=== PATIENT | male | born 1930 | race Caucasian/White ===

== ENCOUNTER 2018-02-27 10:27 | Emergency (ER) | payer MEDICARE, BC ==
[2018-02-27 11:07] LABS: #Basophils 0.1 thou/uL (0.0-0.2); #Eosinphils 0.1 thou/uL (0.0-0.7); #Lymphocytes 0.7 thou/uL (1.20-3.40); #Monocytes 0.6 thou/uL (0.11-0.59); #Neutrophils 4.8 thou/uL (1.40-6.50); %Basophils 1.3 % (0.0-1.0); %Eosinophils 1.5 % (0.0-10.0); %Lymphocytes 11.5 % (21.0-51.0); %Neutrophils 76.7 % (42.0-75.0); Hemoglobin 14.1 g/dL (14.0-18.0); Mean Corpuscular HGB CONC 36.1 g/dL (32.0-36.0); Mean Corpuscular Hemoglobin 33.2 pg (27.0-31.0); Mean Corpuscular Volume 92.1 fL (78.0-98.0); Mean Platelet Volume 9.2 fL (7.4-10.4); Platelet Count 176 thou/uL (130-400); RBC Distribution Width 11.3 % (11.5-14.5); Red Blood Cell (RBC) Count 4.26 mill/uL (4.70-6.10); White Blood Cell (WBC) Count 6.3 thou/uL (4.8-10.8)
[2018-02-27 11:17] LABS: ALT (SGPT) 24 U/L (8-55); AST (SGOT) 32 U/L (5-34); Albumin 3.8 g/dL (3.4-4.8); Alkaline Phosphatase 91 U/L (40-150); Anion Gap 13 mmol/L (10-20); BUN (Urea Nitrogen) 13 mg/dL (8.4-25.7); Bilirubin, Total 1.7 mg/dL (0.2-1.2); CK (CPK) 24 U/L (30-200); Calc. Creatinine Clearance 0 mL/min (70-130); Calcium 9.2 mg/dL (7.8-10.44); Carbon Dioxide 23 mmol/L (23-31); Chloride 102 mmol/L (98-107); Estimated GFR-MDRD 85; Glucose 116 mg/dL (83-110); Lipase 6 U/L (8-78); Potassium 3.9 mmol/L (3.5-5.1); Protein, Total 6.8 g/dL (5.8-8.1); Sodium 134 mmol/L (136-145)
[2018-02-27 11:20] LABS: CKMB 0.9 ng/mL (0-6.6); Troponin I Less than 0.010 ng/mL (< 0.028)
[2018-02-27] MEDS ORDERED: Meclizine HCl 25 MG TAB ONE (11:26)
--- NOTE | 2018-02-27 11:38 | RAD ---
CHEST 1 VIEW: Date: 02/27/18 HISTORY: Weakness. Dyspnea. COMPARISON: 02/11/17. FINDINGS: Cardiac silhouette magnified by projection. Pulmonary vasculature remains upper limits of normal. Med iastinum midline with aortic calcification. Prominent pleural calcifications throughout each hemithor ax are similar in appearance to the prior study. No lobar consolidation or evidence of pneumothorax. IMPRESSION: Pleural calcification and other chronic-type findings are stable. No active cardiopulmonary abnormali ties are demonstrated. POS: JOSE
[2018-02-27 14:03] LABS: Bilirubin Negative (Negative); Blood, Urine Negative (Negative); Clarity Clear (Clear); Glucose, Urine (Dipstick) Negative (Negative); Leukocyte Negative (Negative); Nitrite Negative (Negative); Protein, Urine (Dipstick) Negative (Neg-Trace); Urobilinogen > or = 8.0 mg/dL (0.2-1.0); pH, Urine 6.5 (5.0-9.0)
== END 2018-02-27 14:23 | disposition home or self-care (01) ==
LOC: SCSER 10:27
DX: R53.1 Weakness (principal); I48.91 Unspecified atrial fibrillation; J44.9 Chronic obstructive pulmonary disease, unspecified
CPT/HCPCS: 71045; 80053; 81003; 82550; 82553; 83605; 83690; 84484; 85025; 87040; 93005; 94640; 94760; 96360; 96361; J7620

== ENCOUNTER 2018-07-13 18:14 | Emergency (ER) | payer MEDICARE, BC ==
[2018-07-13] MEDS ORDERED: cloNIDine 0.1 MG TAB ONE (18:29)
[2018-07-13 18:48] LABS: #Basophils 0.1 thou/uL (0.0-0.2); #Eosinphils 0.6 thou/uL (0.0-0.7); #Lymphocytes 1.4 thou/uL (1.20-3.40); #Monocytes 0.5 thou/uL (0.11-0.59); #Neutrophils 3.8 thou/uL (1.40-6.50); %Eosinophils 9.4 % (0.0-10.0); %Lymphocytes 21.6 % (21.0-51.0); %Monocytes 8.1 % (0.0-10.0); %Neutrophils 58.9 % (42.0-75.0); Hemoglobin 14.1 g/dL (14.0-18.0); Mean Corpuscular Hemoglobin 31.9 pg (27.0-31.0); Mean Corpuscular Volume 93.9 fL (78.0-98.0); Mean Platelet Volume 9.5 fL (7.4-10.4); Platelet Count 168 thou/uL (130-400); RBC Distribution Width 12.1 % (11.5-14.5); Red Blood Cell (RBC) Count 4.42 mill/uL (4.70-6.10); White Blood Cell (WBC) Count 6.4 thou/uL (4.8-10.8)
[2018-07-13 19:03] LABS: ALT (SGPT) 17 U/L (8-55); AST (SGOT) 21 U/L (5-34); Albumin 4.2 g/dL (3.4-4.8); Alkaline Phosphatase 89 U/L (40-150); Anion Gap 12 mmol/L (10-20); BUN (Urea Nitrogen) 13 mg/dL (8.4-25.7); Bilirubin, Total 0.6 mg/dL (0.2-1.2); Calc. Creatinine Clearance 0 mL/min (70-130); Calcium 9.4 mg/dL (7.8-10.44); Carbon Dioxide 24 mmol/L (23-31); Chloride 104 mmol/L (98-107); Estimated GFR-MDRD 85; Globulin 3.1 g/dL (2.4-3.5); Glucose 97 mg/dL (83-110); Potassium 4.1 mmol/L (3.5-5.1); Protein, Total 7.3 g/dL (5.8-8.1); Sodium 136 mmol/L (136-145)
[2018-07-13 19:05] LABS: CKMB 2.2 ng/mL (0-6.6); Troponin I Less than 0.010 ng/mL (< 0.028)
--- NOTE | 2018-07-13 19:10 | RAD ---
UPRIGHT PORTABLE CHEST ONE VIEW: History: 88-year-old male with history of elevated blood pressure, atrial flutter. Comparison: 02-27-18 FINDINGS: There is extensive bilateral pleural calcified plaques. These are stable. Heart size is normal. No co nfluent pneumonia, overt edema, or pleural effusion. No cardiomegaly. IMPRESSION: Stable extensive bilateral pleural plaques and interstitial chronic lung changes. No acute process. A therosclerosis of the aorta. POS: JOSEH
== END 2018-07-13 19:23 | disposition home or self-care (01) ==
LOC: SCSER 18:14
DX: I10 Essential (primary) hypertension (principal); I48.91 Unspecified atrial fibrillation; J44.9 Chronic obstructive pulmonary disease, unspecified
CPT/HCPCS: 36415; 71045; 80053; 82553; 84484; 85025; 93005

== ENCOUNTER 2018-07-14 13:03 | Emergency (ER) | payer MEDICARE, BC ==
[2018-07-14 13:40] LABS: #Basophils 0.1 thou/uL (0.0-0.2); #Eosinphils 0.4 thou/uL (0.0-0.7); #Lymphocytes 1.2 thou/uL (1.20-3.40); #Monocytes 0.6 thou/uL (0.11-0.59); %Basophils 1.5 % (0.0-1.0); %Lymphocytes 18.6 % (21.0-51.0); %Monocytes 8.7 % (0.0-10.0); %Neutrophils 64.1 % (42.0-75.0); Hemoglobin 13.5 g/dL (14.0-18.0); Mean Corpuscular HGB CONC 33.2 g/dL (32.0-36.0); Mean Corpuscular Hemoglobin 31.7 pg (27.0-31.0); Mean Corpuscular Volume 95.6 fL (78.0-98.0); Mean Platelet Volume 9.8 fL (7.4-10.4); Platelet Count 164 thou/uL (130-400); RBC Distribution Width 12.4 % (11.5-14.5); Red Blood Cell (RBC) Count 4.27 mill/uL (4.70-6.10); White Blood Cell (WBC) Count 6.3 thou/uL (4.8-10.8)
[2018-07-14 13:54] LABS: Anion Gap 12 mmol/L (10-20); BUN (Urea Nitrogen) 11 mg/dL (8.4-25.7); Calc. Creatinine Clearance 0 mL/min (70-130); Calcium 9.3 mg/dL (7.8-10.44); Carbon Dioxide 26 mmol/L (23-31); Chloride 101 mmol/L (98-107); Estimated GFR-MDRD 87; Glucose 97 mg/dL (83-110); Potassium 4.2 mmol/L (3.5-5.1); Sodium 135 mmol/L (136-145)
[2018-07-14 13:58] LABS: Troponin I Less than 0.010 ng/mL (< 0.028)
== END 2018-07-14 14:21 | disposition home or self-care (01) ==
LOC: SCSER 13:03
DX: I10 Essential (primary) hypertension (principal); I48.91 Unspecified atrial fibrillation; J44.9 Chronic obstructive pulmonary disease, unspecified
CPT/HCPCS: 36415; 80048; 82553; 84484; 85025; 93005

== ENCOUNTER 2018-12-16 10:29 | Outpatient (CLI) | payer MEDICARE ==
--- NOTE | 2018-12-16 10:50 | RAD ---
Exam: Chest 2 views HISTORY:Dyspnea Comparison: Dating back to 10/24/2015 FINDINGS: Hyperinflation of the lungs persists, with diffuse pleural based opacification and several scattered pleural plaques bilaterally. Blunting of the left costophrenic sulcus is similar. Cardiac silhouette is at upper limits of normal in size. Chest is otherwise stable. IMPRESSION: 1. 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 2. Stable blunting of the left costophrenic sulcus.
== END 2018-12-16 10:30 | disposition home or self-care (01) ==
LOC: RAD 10:29
PROVIDERS: ATTEND Internal Medicine
DX: R06.00 Dyspnea, unspecified (principal); J94.9 Pleural condition, unspecified
CPT/HCPCS: 71046

== ENCOUNTER 2019-06-13 21:54 | Emergency (ER) | payer MEDICARE ==
[2019-06-13 22:26] LABS: #Basophils 0.1 thou/uL (0.0-0.2); #Eosinphils 0.2 thou/uL (0.0-0.7); #Lymphocytes 0.8 thou/uL (1.20-3.40); #Monocytes 0.8 thou/uL (0.11-0.59); %Basophils 0.7 % (0.0-1.0); %Eosinophils 1.7 % (0.0-10.0); %Lymphocytes 7.1 % (21.0-51.0); %Monocytes 7.2 % (0.0-10.0); %Neutrophils 83.3 % (42.0-75.0); Hemoglobin 15.8 g/dL (14.0-18.0); Mean Corpuscular HGB CONC 34.5 g/dL (32.0-36.0); Mean Corpuscular Hemoglobin 34.6 pg (27.0-31.0); Mean Platelet Volume 8.4 fL (7.4-10.4); Platelet Count 225 thou/uL (130-400); RBC Distribution Width 12.2 % (11.5-14.5); Red Blood Cell (RBC) Count 4.55 mill/uL (4.70-6.10); White Blood Cell (WBC) Count 10.8 thou/uL (4.8-10.8)
--- NOTE | 2019-06-13 22:41 | RAD ---
Exam: Chest one view: HISTORY: Cough COMPARISON: 12/16/2018 FINDINGS: Extensive hyperinflation and chronic lung changes with extensive bilateral pleural calcification. All these changes appear to be old and chronic although given the extent of the pleural calcification which may obscure minimal underlying acute pneumonia, consideration for short-term follow-up and clin ical correlation in this regard is suggested. No confluent lobar pneumonia. Heart size is normal. IMPRESSION: Extensive chronic changes with extensive bilateral but primarily left-sided pleural calcifications wh ich could obscure some minimal early acute parenchymal process. Consider short-term follow-up.
[2019-06-13 22:47] LABS: ALT (SGPT) 20 U/L (8-55); AST (SGOT) 78 U/L (5-34); Albumin 3.9 g/dL (3.4-4.8); Alkaline Phosphatase 89 U/L (40-110); Anion Gap 14 mmol/L (10-20); BUN (Urea Nitrogen) 12 mg/dL (8.4-25.7); Calc. Creatinine Clearance 0 mL/min (70-130); Calcium 9.1 mg/dL (7.8-10.44); Carbon Dioxide 22 mmol/L (23-31); Chloride 97 mmol/L (98-107); Estimated GFR-MDRD 87; Globulin 2.8 g/dL (2.4-3.5); Glucose 121 mg/dL (83-110); Potassium 4.1 mmol/L (3.5-5.1); Protein, Total 6.7 g/dL (5.8-8.1); Sodium 129 mmol/L (136-145)
== END 2019-06-13 22:57 | disposition home or self-care (01) ==
LOC: ERS 21:54
DX: J06.9 Acute upper respiratory infection, unspecified (principal); I10 Essential (primary) hypertension; I49.9 Cardiac arrhythmia, unspecified; I48.91 Unspecified atrial fibrillation; J44.9 Chronic obstructive pulmonary disease, unspecified; Z79.82 Long term (current) use of aspirin; Z79.899 Other long term (current) drug therapy
CPT/HCPCS: 71045; 80053; 85025; 87804

== ENCOUNTER 2019-07-17 12:33 | Outpatient (CLI) | payer MEDICARE ==
--- NOTE | 2019-07-17 13:20 | RAD ---
Chest 2 views HISTORY: Dyspnea. COMPARISON: 06/13/2019. FINDINGS: Cardiac silhouette and pulmonary vasculature are unremarkable. Mediastinum is midline with aortic calcification. Lungs are hyperinflated with flattening of each hemidiaphragm and prominent widespread scattered interstitial thickening. Extensive pleural calcified plaque throughout each juventino thorax, most severe along the left lateral lower hemithorax. IMPRESSION: Severe pulmonary hyperinflation, calcified pleural plaques, and other findings are stable . Atherosclerosis.
== END 2019-07-17 12:34 | disposition home or self-care (01) ==
LOC: RAD 12:33
PROVIDERS: ATTEND Internal Medicine Pulmonary Disease
DX: R06.00 Dyspnea, unspecified (principal); I70.90 Unspecified atherosclerosis; J98.4 Other disorders of lung
CPT/HCPCS: 71046

== ENCOUNTER 2019-09-16 10:58 | Outpatient (CLI) | payer MEDICARE ==
--- NOTE | 2019-09-16 11:33 | RAD ---
CHEST 2 VIEWS: COMPARISON: 07/17/2019. HISTORY: Dyspnea. FINDINGS: Atherosclerosis of the aorta. Normal cardiac silhouette. Bilateral pleural effusions. Chronic lung pa renchymal changes are suspected. Stable density along the lateral left pleural margin noted at the lung base and near the lung apex. Similar pleural-based densities are noted in the right lung base an d right lung apex. These pleural-based densities are unchanged. No pneumothorax. IMPRESSION: 1. Worsening bilateral pleural effusions. 2. Stable lung parenchymal changes. 3. Stable pleural-based densities. Transcribed Date/Time: 09/16/2019 11:34 AM
== END 2019-09-16 10:59 | disposition home or self-care (01) ==
LOC: RAD 10:58
PROVIDERS: ATTEND Internal Medicine Pulmonary Disease
DX: R06.00 Dyspnea, unspecified (principal); J90 Pleural effusion, not elsewhere classified; R91.8 Other nonspecific abnormal finding of lung field
CPT/HCPCS: 71046